=== PATIENT | female | born 1965 | race Caucasian/White ===

== ENCOUNTER 2017-01-05 08:01 | Day surgery (SDC) | payer BC ==
[~2017-01-05 08:01] MED LIST: Acetaminophen/HYDROcodone 325-5 MG Tab PO PRN; Bupivacaine 25%/EPINEPHrine/PF 60 ML ONE; Lactated Ringers 1,000 ML IV SCH; Lidocaine 2% 5 ML SDV ONE; Midazolam 1 MG/ML 2 ML SDV ONE; Propofol 200 MG/20 ML SDV ONE; Rocuronium 10 MG/ML 10 ML Syringe ONE; Succinylcholine/Normal Saline 200 MG/10 ML Syringe ONE; ceFAZolin 2 GM in Premix Bag 1 BAG IV ONE; fentaNYL 100 MCG/2 ML SDV ONE
--- NOTE | 2017-01-05 08:38 | PCM.PREANE ---
Preanesthetic Assessment - Anesthesia/Transfusion/Family Hx Anesthesia History: Prior Anesthesia Without Reaction Family History of Anesthesia Reaction: No Transfusion History: No Prior Transfusion(s) Intubation History: Unknown - Review of Systems General: No Symptoms Pulmonary: No Symptoms Cardiovascular: No Symptoms Gastrointestinal: No Symptoms Neurological: No Symptoms Other: Reports: None - Physical Assessment Height: 1.57 m Weight: 86.183 kg ASA Class: 2 Mental Status: Alert & Oriented x3 Airway Class: Mallampati = 2 Dentition: Reports: Normal Dentition, Bonneau(s) (upper front x2, lower front x1) , Bridge (left upper (bacl)) Thyro-Mental Finger Breadths: 3 Mouth Opening Finger Breadths: 3 ROM/Head Extension: Full Lungs: Clear to Auscultation, Normal Respiratory Effort Cardiovascular: Regular Rate, Regular Rhythm - Allergies Allergies/Adverse Reactions: Allergies Allergy/AdvReac Type Severity Reaction Status Date / Time Sulfa (Sulfonamide Allergy Rash Verified 11/14/16 11:49 Antibiotics) - Blood Blood Available: No - Anesthesia Plan Pre-Op Medication Ordered: None - Acknowledgements Anesthesia Type Planned: General Anesthesia Pt an Appropriate Candidate for the Planned Anesthesia: Yes Alternatives and Risks of Anesthesia Discussed w Pt/Guardian: Yes Pt/Guardian Understands and Agrees with Anesthesia Plan: Yes PreAnesthesia Questionnaire HEENT History: Reports: Other (See Below) Other HEENT History: wears glasses Cardiovascular History: Reports: High Cholesterol Gastrointestinal History: Reports: None Genitourinary History: Reports: None Musculoskeletal History: Reports: Back Pain, Chronic, Neck Pain, Chronic, Other (See Below) (shoulder pain) Endocrine/Metabolic History: Reports: Hypothyroidism, Obesity/BMI 30+ - Past Surgical History Other GI Surgeries/Procedures: I&D of naida rectal abscess - SUBSTANCE USE Smoking Status *Q: Never Smoker Recreational Drug Use History: No - HOME MEDS Home Medications: Home Meds Levothyroxine 25 mcg PO QAM 11/14/16 [History] atorvaSTATin Calcium [Atorvastatin Calcium] 20 mg PO DAILY 11/14/16 [History] Estradiol [Climara] 1 patch TRDERM ASDIRECTED 01/02/17 [History] Progesterone,Micronized [Progesterone] 100 mg PO DAILY 01/02/17 [History] - CURRENT (IN HOUSE) MEDS Current Meds: Current Medications Hydrocodone Bitart/Acetaminophen (Spring 325-5 Mg) 1 tab PO Q4H PRN PRN Reason: Pain Bupivacaine HCl/Epinephrine Bitart (Marcaine 0.25%/Epinephrine 1:200,000) 30 ml INJECT ONETIME ONE Stop: 01/05/17 09:01 Lactated Ringer's (Ringers, Lactated) 1,000 mls @ 125 mls/hr IV ASDIRECTED JERZY Last Admin: 01/05/17 08:32 Dose: 125 mls/hr Discontinued Medications Fentanyl (Sublimaze) Confirm Administered Dose 100 mcg .ROUTE .STK-MED ONE Stop: 01/05/17 07:39 Cefazolin Sodium/Dextrose 2 gm (/ Premix) 50 mls @ 100 mls/hr IV ONETIME ONE Stop: 01/05/17 08:29 Bupivacaine HCl/Epinephrine Bitart (Sensorc Mpf 0.25%-Epi [id number]) Confirm Administered Dose 120 mls @ as directed .ROUTE .STK-MED ONE Stop: 01/05/17 07:26 Lidocaine (Xylocaine-Mpf 2%) Confirm Administered Dose 5 ml .ROUTE .STK-MED ONE Stop: 01/05/17 07:39 Midazolam HCl (Versed 1 Mg/Ml) Confirm Administered Dose 2 mg .ROUTE .STK-MED ONE Stop: 01/05/17 07:40 Propofol (Diprivan 20 Ml) Confirm Administered Dose 200 mg .ROUTE .STK-MED ONE Stop: 01/05/17 07:39 Rocuronium [place] (Zemuron) Confirm Administered Dose 100 mg .ROUTE .STK-MED ONE Stop: 01/05/17 07:39 Succinylcholine Chloride (Succinylcholine In Ns Pf) Confirm Administered Dose 200 mg .ROUTE .STK-MED ONE Stop: 01/05/17 07:39
[2017-01-05] MEDS ORDERED: Bupivacaine 0.25%/EPINEPHrine 1:200,000 10 ML SDV INJECT ONE (09:00)
[2017-01-05] MEDS ORDERED: HYDROmorphone 2 MG/ML Syringe ONE ×2 (09:53→10:16)
[2017-01-05] MEDS ORDERED: Dexamethasone 4 MG/ML 5 ML MDV ONE (09:55)
[2017-01-05] MEDS ORDERED: fentaNYL 100 MCG/2 ML SDV ONE (10:16)
[2017-01-05] MEDS ORDERED: Meperidine PF 25 MG/ML Syringe IV PRN (10:18)
[2017-01-05] MEDS ORDERED: fentaNYL 100 MCG/2 ML SDV IVPUSH PRN (10:18)
[2017-01-05] MEDS ORDERED: Acetaminophen 1,000 MG in Premix Bag 1 BAG IV PRN (10:20)
[2017-01-05] MEDS ORDERED: Ketorolac 30 MG/ML SDV ONE (10:51)
[2017-01-05] MEDS ORDERED: Ondansetron 4 MG/2 ML SDV ONE (10:51)
--- NOTE | 2017-01-05 12:53 | PCM.POSTAN ---
POST ANESTHESIA ASSESSMENT - MENTAL STATUS Mental Status: Alert, Oriented - RESPIRATORY Respiratory Status: Respiratory Rate WNL, Airway Patent, O2 Saturation Stable - CARDIOVASCULAR CV Status: Pulse Rate WNL, Blood Pressure Stable - GASTROINTESTINAL GI Status: No Symptoms - PAIN Pain Score: 3 - POST OP HYDRATION Hydration Status: Adequate & Stable - OBSERVATIONS Free Text/Narrative:: no anesthesia problems
[2017-01-05 14:15] VITALS: BP 85/54
--- NOTE | 2017-01-08 11:05 | PCM.OPNOTE ---
- General Post-Op/Procedure Note Date of Surgery/Procedure: 01/05/17 Operative Procedure(s): bilateral breast reduction Pre Op Diagnosis: bilateral mcaromastia Post-Op Diagnosis: Same Anesthesia Technique: General ET Tube, Local Primary Surgeon: Nilsa Barbosa Chemical Inspector: Jesusita Huerta Reason Chemical Inspector Was Necessary: retraction Complications: None Condition: Good
--- NOTE | 2017-01-08 13:36 | OR ---
SURGEON: LAMONT LEMA MD DATE OF PROCEDURE: 01/05/2017 PREOPERATIVE DIAGNOSIS: Bilateral macromastia. POSTOP DIAGNOSIS: Bilateral macromastia. PROCEDURES: Bilateral breast reduction. DEALER ACCOUNTS INVESTIGATOR: BETO Foster. ANESTHESIA: General ET tube with local. INDICATIONS: Ms. Ingram is a 51-year-old female with bilateral macromastia. Risks and benefits of breast reduction were discussed with her. She has significantly dense breasts with the left side being slightly larger than the right. Informed consent was discussed with her including, but not limited to, bleeding, infection, damage to underlying or overlying structures, possible need for future interventions, possible scarring. PROCEDURE IN DETAIL: After informed consent was obtained and placed on the patient, the patient was brought to the operating theater and laid in supine position. After adequate general anesthetic was obtained, the area was prepped and draped, and a time-out was completed to confirm side and site. Once prepped and draped, attention was paid to the preanesthesia markings and the inverted T raymond pattern reduction. Once markings were assured, the nipple- areolar complex was marked at 40 mm and an inferior pedicle with 9 cm was designed. Once adequately designed, attention was then paid to isolation of the inferior pedicle using a breast tourniquet and the inferior pedicle was de- epithelialized. Attention was then paid to the upper skin flaps and the tourniquet was released of the breast. Dissection was carried 1 cm thick and tapering to the chest wall medially, and [address] to the chest wall laterally. The intervening breast tissue between the inferior pedicle and this was removed taking care to leave ample tissue posterior to the nipple for viability. Once adequately excised, the area was meticulously hemostased and copiously irrigated. Once adequate hemostasis was obtained, the skin flaps were redraped over the inferior pedicle and stapled in place. A mirror procedure was completed on the opposite side and the patient was sat up and symmetry was appreciated. Over 800g was removed from each side per OR weights. The patient was laid back into the supine position after minor modifications through symmetry and the nipple-areolar complexes had been marked in their new position. Dissection was then carried for the lateral dog ears to ensure a smooth transition and around the nipple-areolar complex, and this was brought through and stapled in place. The patient was sat up and this was appreciated to be in good position. Once adequately confirmed, attention was then paid to closure of the wound with deep 3-0 Monocryl running STRATAFIX suture with a total of two on each breast for a total of four bilaterally and then running subcuticular stitch was completed with a 4-0 STRATAFIX Monocryl with a total of four sutures bilaterally. Once adequately closed, the skin was dressed with Steri-Strips and fluffs. A small line of tape was used and a compression bra was placed. The patient tolerated the procedure well. All counts and needles were correct at the end of the case. Of note, the patient had bilateral nipple retraction prior to the start of the case and the right side corrected much better than the left with the reduction. FOLLOWUP INSTRUCTIONS: The patient will see us in the clinic on Sunday or sooner if any problems, questions, or concerns. She was given a prescription for pain control. CHAU / ARIELA /[id number]
== END 2017-01-05 14:44 | disposition home or self-care (01) ==
LOC: MW.SDS 08:01
PROVIDERS: ATTEND Plastic Surgery
DX: N62 Hypertrophy of breast (principal); E78.00 Pure hypercholesterolemia, unspecified; E03.9 Hypothyroidism, unspecified; E66.9 Obesity, unspecified; Z88.2 Allergy status to sulfonamides; Z79.899 Other long term (current) drug therapy; Z98.890 Other specified postprocedural states; Z68.34 Body mass index [BMI] 34.0-34.9, adult
CPT/HCPCS: 19318; J1100; J1170; J1885; J2250; J2405; J3010; J7120; 00402; 88304; J2704